=== PATIENT | male | born 1985 | race Caucasian/White ===

== ENCOUNTER → 2018-09-06 | Outpatient (CLI) | payer BC ==
[~2018-09-06] MED LIST: ACHD5005 PO; AMOX-355 PO; CATHETER FLUSH 10 ML SYR IV PRN
--- NOTE | 2018-09-06 13:04 | Diagnostic Imaging Report ---
INDICATION: Epigastric pain. TECHNIQUE: Patient was administered 5.2 mCi of technetium-99m Choletec intravenously, and imaging over the abdomen was performed. At 45 minutes, patient ingested 8 ounces of Ensure, and the gallbladder ejection fraction was calculated. FINDINGS: There is homogeneous uptake of activity by the liver. Prompt excretion of activity into the common duct and gallbladder is seen. There is normal passage of activity into the small bowel. Gallbladder ejection fraction is abnormally low at 15%. Normal values are 33% or greater. IMPRESSION: 1. No evidence of cystic duct or common bile duct obstruction. 2. Low gallbladder ejection fraction of 15%. Dictated by: Dictated on workstation # [id number]
== END ==
LOC: CARD 09:17
PROVIDERS: ATTEND Family Medicine
DX: R10.13 Epigastric pain (principal); R10.31 Right lower quadrant pain; K82.8 Other specified diseases of gallbladder
CPT/HCPCS: 78227

== ENCOUNTER → 2020-07-24 | Outpatient (CLI) | payer BC ==
[~2020-07-24] MED LIST changes: -CATHETER FLUSH 10 ML SYR IV PRN
--- NOTE | 2020-07-24 14:40 | Diagnostic Imaging Report ---
EXAM: Nuclear medicine gastric emptying study INDICATION: Abdominal pain This study was performed following administration of 1 mCi of sulfur colloid in a gastric emptying meal. Normally, 50% of the radiotracer clears from the stomach by 60 mm +/- 60 minutes. On this exam at 1 hour, 62% of the radiotracer had cleared from the stomach. This would indicate that there is no delay in gastric emptying. At 3 hours, 98% of the radiotracer had cleared from the stomach and at 4 and 5 hours, 99% head cleared. IMPRESSION: There is no delay in gastric emptying. Dictated by: Dictated on workstation # [id number]
== END ==
LOC: CARD 09:00
PROVIDERS: ATTEND Internal Medicine Gastroenterology
DX: R10.9 Unspecified abdominal pain (principal); R68.81 Early satiety; R14.3 Flatulence; R13.10 Dysphagia, unspecified
CPT/HCPCS: 78264; A9541

== ENCOUNTER 2022-12-12 05:34 | Outpatient (CLI) | payer BC ==
[~2022-12-12] VITALS: Ht 182.9 cm; Wt 100.0 kg
[2022-12-15] MEDS ORDERED: TRAZ-227 PO ×2 (08:15)
[2022-12-15] MEDS ORDERED: VILA20TA2 PO ×2 (08:15)
[2022-12-15] MEDS ORDERED: CLON0.5T4 PO ×2 (08:15)
== END 2022-12-15 08:36 | disposition home or self-care (01) ==
LOC: PREOP 05:34
PROVIDERS: ATTEND Otolaryngology Otolaryngology/Facial Plastic Surgery
DX: Z01.818 Encounter for other preprocedural examination (principal)

== ENCOUNTER 2022-12-18 08:03 | Day surgery (SDC) | payer OTHER, BC ==
[~2022-12-18] VITALS: Ht 182.9 cm; Wt 100.0 kg
[2022-12-18] VITALS (10 sets, daily range): BP systolic 99–121; BP diastolic 67–78
[~2022-12-18 08:03] MED LIST changes: +CLON0.5T4 PO; +TRAZ-227 PO; +VILA20TA2 PO
[2022-12-18] MEDS ORDERED: LIDOCAINE PF 2% 5 ML (XYLOCAINE) VIAL ONE (08:37)
[2022-12-18] MEDS ORDERED: proPOfol 200 MG/20 ML (DIPRIVAN) VIAL IV ONE (08:37)
[2022-12-18] MEDS ORDERED: MIDAZOLAM 2 MG/2 ML (VERSED) VIAL ONE (08:37)
[2022-12-18] MEDS ORDERED: fentaNYL INJ 100 MCG/2 ML AMP ONE (08:37)
[2022-12-18] MEDS ORDERED: LIDOCAINE/EPI 1%-1:100,000 (XYLOCAINE) 20ML ONE (08:40)
[2022-12-18] MEDS ORDERED: MUPIROCIN 2% OINT 22 GM (BACTROBAN) TUBE ONE (08:40)
[2022-12-18] MEDS ORDERED: PHENYLEPHRINE 0.5% NASAL SPR (NEO-SYNEPHRINE) REG ONE ×2 (08:40→10:44)
[2022-12-18] MEDS ORDERED: COCAINE HCL 4% 2 ML SYR ONE (08:40)
[2022-12-18] MEDS ORDERED: LACTATED RINGERS 1,000 ML IV PRN (08:45)
[2022-12-18] MEDS ORDERED: SUCCINYLCHOLINE INJ 20 MG/1 ML 10 ML VIAL ONE ×2 (08:56→09:19)
[2022-12-18 08:57] LABS: BASOPHILS % (AUTO) 1 % (0-10); EOSINOPHILS # (AUTO) 0.1 10^3/uL (0.0-0.3); EOSINOPHILS % (AUTO) 1 % (0-10); HEMATOCRIT 44 % (40-54); HEMOGLOBIN 14.9 g/dL (13.3-17.7); LYMPHOCYTES # (AUTO) 2.4 10^3/uL (1.0-4.0); LYMPHOCYTES % (AUTO) 32 % (12-44); MEAN CORPUSCULAR HEMOGLOBIN 30 pg (25-34); MEAN CORPUSCULAR HGB CONC 34 g/dL (32-36); MEAN CORPUSCULAR VOLUME 89 fL (80-99); MEAN PLATELET VOLUME 10.2 fL (9.0-12.2); MONOCYTES # (AUTO) 0.7 10^3/uL (0.0-1.0); MONOCYTES % (AUTO) 8 % (0-12); NEUTROPHILS # (AUTO) 4.5 10^3/uL (1.8-7.8); NEUTROPHILS % (AUTO) 58 % (42-75); PLATELET COUNT 282 10^3/uL (130-400); WHITE BLOOD COUNT 7.8 10^3/uL (4.3-11.0)
--- NOTE | 2022-12-18 08:58 | Progress Note-Pre Operative ---
Pre-Operative Progress Note Date of Available H&P: December 18, 2022 Date H&P Reviewed: December 18, 2022 Time H&P Reviewed: 08:00 History & Physical: H&P Reviewed, Patient Examed, No changes noted Changes from last HP none Pre-Operative Diagnosis: Displaced Nasal Fracture AMENA JULIEN MD December 18, 2022 08:58
--- NOTE | 2022-12-18 08:59 | Progress Note-Post Operative ---
Post-Operative Progess Note Surgeon (s)/Corporate Webmaster (s) Surgeon AMENA JULIEN MD Corporate Webmaster n/a Pre-Operative Diagnosis Displaced Nasal Fracture Post-Operative Diagnosis same Post-Op Procedure Note Date of Procedure: December 18, 2022 Name of Procedure Performed: Closed Reduction of Nasal Fracture Description & Findings Description and Findings: n/a Anesthesia Type get Estimated Blood Loss minimal Packing none. Specimen(s) collected/removed none AMENA JULIEN MD December 18, 2022 08:59
[2022-12-18] MEDS ORDERED: NS IV 1000 ML 1,000 ML IV SCH (09:00)
[2022-12-18] MEDS ORDERED: APAP 325 MG/10.15 ML LIQ (TYLENOL) UDC PO PRN (09:00)
[2022-12-18] MEDS ORDERED: HYDROcodone/APAP 5 MG/325 MG (LORTAB) TAB PO PRN (09:00)
[2022-12-18 09:14] LABS: CALCIUM 9.6 MG/DL (8.5-10.1)
[2022-12-18 09:18] LABS: CREATININE SERUM 1.01 MG/DL (0.60-1.30)
[2022-12-18] MEDS ORDERED: SEVOFLURANE (ULTANE) 15 ML INHAL SOLN ONE (09:19)
[2022-12-18] MEDS ORDERED: ROCURONIUM 50 MG/5 ML (ZEMURON) VIAL IV ONE (09:19)
--- NOTE | 2022-12-18 09:29 | Anesthesia-General Post-Op ---
General Patient Condition Mental Status/LOC: Same as Preop Cardiovascular: Satisfactory Nausea/Vomiting: Absent Respiratory: Satisfactory Pain: Controlled Complications: Absent Post Op Complications Complications None Follow Up Care/Instructions Patient Instructions None needed. Anesthesia/Patient Condition Patient Condition Patient is doing well, no complaints, stable vital signs, no apparent adverse anesthesia problems. No complications reported per nursing. KRISTOFER WHITAKER CRNA December 18, 2022 09:29
[2022-12-18] MEDS ORDERED: ONDANSETRON 4 MG/2 ML (SDV) Z0FRAN IVP PRN (09:30)
[2022-12-18] MEDS ORDERED: fentaNYL INJ 100 MCG/2 ML AMP IVP ONE (09:30)
[2022-12-18] MEDS ORDERED: ACHD5005 PO ×2 (10:14)
[2022-12-18] MEDS ORDERED: LIDOCAINE/EPI 1%-1:100,000 (XYLOCAINE) 20ML INJ ONE (10:43)
== END 2022-12-18 11:15 ==
LOC: SDC 08:03
PROVIDERS: ATTEND Otolaryngology Otolaryngology/Facial Plastic Surgery
DX: S02.2XXA Fracture of nasal bones, initial encounter for closed fracture (principal); R09.81 Nasal congestion; Z28.310 Unvaccinated for COVID-19
CPT/HCPCS: 36415; 80048; 85025; 87081